=== PATIENT | female | born 1985 | race African-American/Black ===

== ENCOUNTER 2018-08-04 10:02 | Emergency (ER) | payer SELFPAY | END 2018-08-04 11:08 | disposition home or self-care (01) | LOC: ERS 10:02 | DX: B35.3 Tinea pedis (principal); L84 Corns and callosities; F17.210 Nicotine dependence, cigarettes, uncomplicated; Z71.6 Tobacco abuse counseling | CPT/HCPCS: 99406 ==

== ENCOUNTER 2019-12-06 15:24 | Emergency (ER) | payer SELFPAY | END 2019-12-06 16:46 | disposition left against medical advice (07) | LOC: ERS 15:24 | DX: Z53.21 Procedure and treatment not carried out due to patient leaving prior to being seen by health care provider (principal) ==

== ENCOUNTER 2020-12-29 17:45 | Emergency (ER) | payer BC, SELFPAY ==
[2020-12-29] MEDS ORDERED: diphenhydrAMINE 50 MG/ML VIAL ONE (18:36)
[2020-12-29] MEDS ORDERED: Metoclopramide HCl 10 MG/2 ML VIAL ONE (18:36)
[2020-12-29] MEDS ORDERED: Ketorolac Tromethamine 30 MG/ML VIAL ONE (18:36)
== END 2020-12-29 19:08 ==
LOC: ERS 17:45
DX: R51.9 Headache, unspecified (principal); Z53.29 Procedure and treatment not carried out because of patient's decision for other reasons; F17.210 Nicotine dependence, cigarettes, uncomplicated
CPT/HCPCS: 96365; 96375; J1200; J1885; J2765

== ENCOUNTER 2021-04-15 07:54 | Emergency (ER) | payer BC ==
[2021-04-15] MEDS ORDERED: Bupivacaine 0.5% 10 ML VIAL ONE (08:27)
[2021-04-15] MEDS ORDERED: Lidocaine 1% w/Epinephrine 1:100K 20 ML VIAL ONE (08:30)
[2021-04-15] MEDS ORDERED: Boostrix 0.5 ML (Tdap) VIAL ONE (08:36)
[2021-04-15] MEDS ORDERED: Bacitracin 1 PK ONE (09:40)
== END 2021-04-15 10:03 | disposition home or self-care (01) ==
LOC: ERS 07:54
DX: S91.012A Laceration without foreign body, left ankle, initial encounter (principal); S71.112A Laceration without foreign body, left thigh, initial encounter; Z23 Encounter for immunization; W45.8XXA Other foreign body or object entering through skin, initial encounter
CPT/HCPCS: 12002; 90471; 90715; J3490

== ENCOUNTER 2022-10-17 03:51 | Emergency (ER) | payer SELFPAY ==
[2022-10-17] MEDS ORDERED: Haloperidol Lactate 5 MG/ML VIAL ONE (04:07)
[2022-10-17 05:00] LABS: ALT (SGPT) 17 U/L (8-55); AST (SGOT) 18 U/L (5-34); Alkaline Phosphatase 94 U/L (40-110); Anion Gap 12 mmol/L (10-20); BUN (Urea Nitrogen) 9 mg/dL (7.0-18.7); Bilirubin, Total 0.4 mg/dL (0.2-1.2); Calc. Creatinine Clearance 0 mL/min (70-130); Calcium 10.2 mg/dL (7.8-10.44); Carbon Dioxide 27 mmol/L (22-29); Chloride 97 mmol/L (98-107); Estimated GFR 110; Globulin 3.7 g/dL (2.4-3.5); Glucose 92 mg/dL (70-105); Lipase 10 U/L (8-78); Potassium 3.2 mmol/L (3.5-5.1); Protein, Total 7.7 g/dL (6.0-8.3); Sodium 133 mmol/L (136-145)
[2022-10-17] MEDS ORDERED: Potassium Chloride 20 MEQ TAB ONE (05:34)
[2022-10-17 05:40] LABS: #Lymphocytes 2.1 thou/uL (1.20-3.40); #Monocytes 1.2 thou/uL (0.11-0.59); #Neutrophils 4.8 thou/uL (1.40-6.50); %Basophils 0.2 % (0.0-1.0); %Eosinophils 0.2 % (0.0-10.0); %Lymphocytes 25.9 % (21.0-51.0); %Monocytes 14.3 % (0.0-10.0); %Neutrophils 59.3 % (42.0-75.0); Hemoglobin 10.9 g/dL (12.0-16.0); MDiff Complete? YES; Mean Corpuscular HGB CONC 29.7 g/dL (32.0-36.0); Mean Corpuscular Hemoglobin 19.2 pg (27.0-31.0); Mean Corpuscular Volume 64.6 fl (78.0-98.0); Mean Platelet Volume 8.2 fL (7.4-10.4); Microcytosis SLIGHT = 6-15 cells (100X) (0-5/hpf); Platelet Count 216 10x3/uL (130-400); Platelet Morphology Comment Appears Adequate; RBC Distribution Width 19.8 % (11.5-14.5); Red Blood Cell (RBC) Count 5.66 mill/uL (4.20-5.40); Reflex for Review?? YES; Target Cells SLIGHT = 2-5 cells (100X) (0-1/hpf); White Blood Cell (WBC) Count 8.1 10x3/uL (4.8-10.8)
== END 2022-10-17 06:59 | disposition home or self-care (01) ==
LOC: ERS 03:51
DX: R10.84 Generalized abdominal pain (principal); R11.2 Nausea with vomiting, unspecified; F17.200 Nicotine dependence, unspecified, uncomplicated
CPT/HCPCS: 36415; 80053; 83690; 85025; 85060; 96361; 96374; J1630